=== PATIENT | female | born 1990 | race African-American/Black ===

== ENCOUNTER 2017-10-07 08:49 | Emergency (ER) | payer MEDICAID, MEDICARE, OTHER ==
[~2017-10-07] VITALS: Ht 170.2 cm; Wt 62.0 kg
[~2017-10-07 08:49] MED LIST: PREN-107
[2017-10-07 08:55] VITALS: BP 98/80
== END 2017-10-07 12:03 | disposition left against medical advice (07) ==
LOC: ER 08:49
DX: S00.81XA Abrasion of other part of head, initial encounter (principal); X58.XXXA Exposure to other specified factors, initial encounter; Y93.89 Activity, other specified; Y92.89 Other specified places as the place of occurrence of the external cause; Y99.8 Other external cause status; Z53.21 Procedure and treatment not carried out due to patient leaving prior to being seen by health care provider

== ENCOUNTER 2020-09-20 03:34 | Emergency (ER) | payer OTHER ==
[~2020-09-20] VITALS: Ht 165.1 cm; Wt 79.0 kg
[2020-09-20] MEDS ORDERED: KETOROLAC 30MG/ML VIAL IV STA (04:07)
[2020-09-20] MEDS ORDERED: ONDANSETRON HCL 4MG/2ML INJ IV STA (04:07)
[2020-09-20] MEDS ORDERED: SODIUM CHLORIDE 0.9% 1,000 ML IV ONE (04:15)
[2020-09-20 04:28] LABS: CLARITY URINE TURBID (CLEAR); COLOR URINE YELLOW (YELLOW); KETONES URINE NEGATIVE (NEGATIVE); LEUKOCYTE ESTERASE URINE NEGATIVE (NEGATIVE); NITRITE URINE NEGATIVE (NEGATIVE); OCCULT BLOOD URINE NEGATIVE (NEGATIVE); PROTEIN URINE NEGATIVE (NEGATIVE); SPECIFIC GRAVITY URINE 1.021 (1.005-1.030)
[2020-09-20 04:29] LABS: BASOPHILS % 0.5 % (0.0-2.0); EOSINOPHILS % 0.1 % (0.0-5.0); HEMATOCRIT. 35.6 % (36.0-48.0); HEMOGLOBIN. 11.8 g/dL (12.0-16.0); LYMPHOCYTES % 23.2 % (20.0-50.0); MEAN CORPUSCULAR HEMOGLOBIN 29.2 pg (28.0-32.0); MEAN CORPUSCULAR VOLUME 88.3 fL (81.0-99.0); MEAN PLATELET VOLUME 7.8 fl (7.4-10.4); MONOCYTES % 6.8 % (2.0-8.0); NEUTROPHILS % 69.4 % (40.0-76.0); PLATELET 282 x1000/uL (130-400); RED BLOOD CELL COUNT 4.04 mill/uL (4.2-5.4); RED CELL DISTRIBUTION WIDTH 14.8 % (11.6-14.6)
[2020-09-20 04:32] LABS: CHLORIDE 108 mEq/L (98-107)
[2020-09-20] MEDS ORDERED: CEFTRIAXONE SODIUM 500 MG/VIAL IM ONE (08:00)
[2020-09-20 08:41] VITALS: BP 125/70
[2020-09-20] MEDS ORDERED: DOXY150T5 MT (08:50)
== END 2020-09-20 09:05 | disposition home or self-care (01) ==
LOC: ER 03:34
DX: R10.2 Pelvic and perineal pain (principal); F12.10 Cannabis abuse, uncomplicated
CPT/HCPCS: 36415; 76830; 76856; 80053; 81003; 81025; 83690; 84702; 85025; 96361; 96372; 96374; 96375; 99284; J0696; J1885; J2405; J7030; Z7610

== ENCOUNTER 2021-04-24 18:43 | Emergency (ER) | payer OTHER ==
[~2021-04-24] VITALS: Ht 170.2 cm; Wt 76.0 kg
[~2021-04-24 18:43] MED LIST changes: +DOXY150T5 MT
[2021-04-24 18:45] VITALS: BP 160/94
== END 2021-04-24 22:48 ==
LOC: ER 18:43
DX: R06.02 Shortness of breath (principal); J45.909 Unspecified asthma, uncomplicated
CPT/HCPCS: 99283